=== PATIENT | male | born 1980 | race African-American/Black ===

== ENCOUNTER 2018-12-02 22:56 | Emergency (ER) | payer BC ==
[2018-12-02] MEDS ORDERED: DIPHTH,PERTUSS(ACELL),TET 0.5 ML DISP.SYRIN IM ONE ×2 (22:59→23:14)
--- NOTE | 2018-12-02 23:00 | PDOC ---
History of Present Illness - General History Source: Patient Exam Limitations: No Limitations - History of Present Illness Initial Comments: The patient is a 38 year old male, with no significant past medical history, who presents to the emergency department with a laceration to the left side of his left eye sustained this evening during a head on collision with a teammate while playing basketball. He denies LOC, nausea, or vomiting. He denies head or neck pain. Patient is unsure when his last tetanus was received. He denies any other complaints. The patient denies chest pain, shortness of breath, headache and dizziness. The patient denies fever, chills, nausea, vomit, diarrhea and constipation. The patient denies dysuria, frequency, urgency and hematuria. PAST MEDICAL HISTORY: no significant history PAST SURGICAL HISTORY: no significant history FAMILY HISTORY: no pertinent history SOCIAL HISTORY: Pt lives with family and is employed. MEDICATIONS: reviewed ALLERGIES: As per nursing notes Review of systems: General: No fevers or chills, no weakness, no weight loss HEENT: No change in vision. No sore throat,. No ear pain CardioVascular: No chest pain or shortness of breath Respiratory:No cough, or wheezing. Gastrointestinal: no nausea, vomiting, diarrhea or constipation, No rectal bleeding Genitourinary: No dysuria, hematuria, or frequency Musculoskeletal: No joint or muscle pain or swelling Neurologic: No headache, vertigo, dizziness or loss of consciousness Psychiatric: nor depression Skin: (+) left lateral eye laceration. No rashes or easy bruising Endocrine: no increased thirst or abnormal weight change Allergic: no skin or latex allergy All other systems reviewed and normal Physical exam: GENERAL: The patient is awake, alert, and fully oriented, in no acute distress. HEAD: (+) Linear superficial laceration Lateral to the left eye . No active bleeding. No bony tenderness. EYES: Pupils equal, round and reactive to light, extraocular movements intact, sclera anicteric, conjunctiva clear. EXTREMITIES: Normal range of motion, no edema. NEUROLOGICAL: Normal speech, normal gait. PSYCH: Normal mood, normal affect. SKIN: Warm, Dry, normal turgor, no rashes or lesions noted. 12/02/18 23:08 <Lora Herzog - Last Filed: 12/02/18 23:08> - General History Source: Patient Exam Limitations: No Limitations - History of Present Illness Initial Comments: 12/02/18 23:00 A portion of this note was documented by scribe services under my direction. I have reviewed the details of the note, within reason, and agree with the documentation with the following case summary and management plan written by me. Patient treated in the ED. Nursing notes are reviewed and incorporated into the medical decision-making. Vital signs reviewed. Assessment and plan: This is a 38-year-old male who comes in complaining of a laceration to the lateral face. Patient hit heads with another player while playing basketball. Patient's last tetanus is unknown. Procedure note laceration repair with Dermabond Laceration was cleaned with peroxide and closed with Dermabond patient tolerated well Patient discharged home will follow-up with his primary care doctor as needed <Angelica Bermudez I - Last Filed: 12/02/18 23:20> - General Chief Complaint: Injury Stated Complaint: FACIAL LAC Time Seen by Provider: 12/02/18 22:58 Past History <Lora Herzog - Last Filed: 12/02/18 23:08> - Suicide/Smoking/Psychosocial Hx Smoking History: Never smoked Number of Cigarettes Smoked Daily: 0 Hx Alcohol Use: No <Angelica Bermudez I - Last Filed: 12/02/18 23:20> - Past Medical History Allergies/Adverse Reactions: Allergies Allergy/AdvReac Type Severity Reaction Status Date / Time No Known Allergies Allergy Verified 03/09/14 20:46 Home Medications: Ambulatory Orders No Home Medications 0 dose .ROUTE UTDICT 03/09/14 *Physical Exam - Vital Signs Last Vital Signs Temp Pulse Resp BP Pulse Ox 98.5 F 80 18 123/76 100 12/02/18 22:57 12/02/18 22:57 12/02/18 22:57 12/02/18 22:57 12/02/18 22:57 <Lora Herzog - Last Filed: 12/02/18 23:08> Moderate Sedation - Procedure Monitoring Vital Signs: Procedure Monitoring Vital Signs Temperature 98.5 F 12/02/18 22:57 Pulse Rate 80 12/02/18 22:57 Respiratory Rate 18 12/02/18 22:57 Blood Pressure 123/76 12/02/18 22:57 O2 Sat by Pulse Oximetry (%) 100 12/02/18 22:57 <Lora Herzog - Last Filed: 12/02/18 23:08> *DC/Admit/Observation/Transfer - Attestations Scribe Attestion: Documentation prepared by Lora Herzog, acting as medical pathology teacher for Angelica Bermudez MD. <Lora Herzog - Last Filed: 12/02/18 23:08> - Discharge Dispostion Decision to Admit order: No <Angelica Bermudez I - Last Filed: 12/02/18 23:20> Diagnosis at time of Disposition: Simple laceration of face Qualifiers: Encounter type: initial encounter Qualified Code(s): S01.81XA - Laceration without foreign body of other part of head, initial encounter - Discharge Dispostion Disposition: HOME Condition at time of disposition: Stable - Patient Instructions Additional Instructions: Tylenol or Motrin as needed for pain/ Read over and follow the Dermabond instructions. Return to the emergency department immediately with ANY new, persistent or worsening symptoms. Continue any medications as previously prescribed by your physician. You should follow up with your primary doctor as soon as possible regarding today's emergency department visit. . Please make sure your doctor reviews the results of your emergency evaluation. Thank you for coming to the Emergency Department today for your care. It was a pleasure to see you today. Please note that your evaluation is INCOMPLETE until you follow-up with your doctor.
[2018-12-02 23:02] VITALS: BP 123/76; PULSE 80; TEMP 98.5; BMI 25.0
== END 2018-12-02 23:20 | disposition home or self-care (01) ==
LOC: FER 22:56
PROC: 0HQ1XZZ Repair Face Skin, External Approach (ICD-10-PCS; principal; 2018-12-02)
PROC: 3E0234Z Introduction of Serum, Toxoid and Vaccine into Muscle, Percutaneous Approach (ICD-10-PCS; 2018-12-02)
DX: S01.81XA Laceration without foreign body of other part of head, initial encounter (principal); W51.XXXA Accidental striking against or bumped into by another person, initial encounter; Y93.67 Activity, basketball; Y92.310 Basketball court as the place of occurrence of the external cause
CPT/HCPCS: 12011-25; 90471; 90715; 99282-25

== ENCOUNTER 2021-11-14 21:30 | Emergency (ER) | payer BC, OTHER ==
[2021-11-14 21:52] VITALS: BP 137/87; PULSE 48; TEMP 98; BMI 24.7
[2021-11-14] MEDS ORDERED: KETOROLAC TROMETHAMINE 30 MG/1 ML VIAL IM ONE (22:19)
[2021-11-14] MEDS ORDERED: ACETAMINOPHEN 325 MG TABLET (FP) PO ONE (22:19)
[2021-11-14] MEDS ORDERED: KETOROLAC TROMETHAMINE 30 MG/1 ML VIAL ONE (22:41)
== END 2021-11-14 23:07 | disposition home or self-care (01) ==
LOC: FER 21:30
DX: M79.651 Pain in right thigh (principal); V49.40XA Driver injured in collision with unspecified motor vehicles in traffic accident, initial encounter
CPT/HCPCS: 72170-TC-FY; 73552-TC-RT-FY; 99284-25

== ENCOUNTER 2022-07-22 00:01 | Emergency (ER) | payer OTHER ==
[2022-07-22] MEDS ORDERED: CEPHALEXIN MONOHYDRATE 500 MG CAPSULE (UD) PO ONE (00:10)
[2022-07-22] MEDS ORDERED: CEPHALEXIN MONOHYDRATE 500 MG CAPSULE (UD) ONE (00:12)
[2022-07-22 00:20] VITALS: BP 126/78; PULSE 58; RESP 16; TEMP 97.8; BMI 26.3
== END 2022-07-22 00:38 | disposition home or self-care (01) ==
LOC: FER 00:01
DX: L02.411 Cutaneous abscess of right axilla (principal)
CPT/HCPCS: 99283-25

== ENCOUNTER 2022-07-27 11:21 | Emergency (ER) | payer OTHER ==
[2022-07-27] MEDS ORDERED: ACETAMINOPHEN 500 MG TABLET (FP) PO ONE (11:34)
[2022-07-27 11:35] VITALS: BP 129/94; PULSE 84; RESP 20; TEMP 98.6; BMI 25.7
[2022-07-27] MEDS ORDERED: ACETAMINOPHEN 500 MG TABLET (FP) ONE (11:40)
== END 2022-07-27 12:59 | disposition home or self-care (01) ==
LOC: FER 11:21
DX: S86.011A Strain of right Achilles tendon, initial encounter (principal)
CPT/HCPCS: 73610-TC-RT-FY; 73630-TC-RT-FY; 99284-25